=== PATIENT | female | born 1965 | race African-American/Black ===

== ENCOUNTER 2017-11-09 12:42 | Emergency (ER) | payer OTHER, SELFPAY ==
[2017-11-09] MEDS ORDERED: Acetaminophen 500 MG TAB ONE (15:18)
--- NOTE | 2017-11-09 15:25 | RAD ---
SINGLE VIEW OF THE CHEST: Comparison: 05-10-17 History: Flu with cough. FINDINGS: Single view of the chest shows a normal sized cardiomediastinal silhouette. There is no evidence of c onsolidation, mass, or pleural effusion. The bones are unremarkable. IMPRESSION: No evidence of acute cardiopulmonary disease. POS: [facility]
[2017-11-09 15:44] LABS: Hematocrit 45.3 % (36.0-47.0); Mean Platelet Volume 8.5 fL (7.4-10.4); White Blood Cell (WBC) Count 4.2 thou/uL (4.8-10.8)
[2017-11-09 15:58] LABS: Lactic Acid - Sepsis 1.8 mmol/L (0.5-2.2)
[2017-11-09 16:02] LABS: ALT (SGPT) 13 U/L (8-55); AST (SGOT) 21 U/L (5-34); Alkaline Phosphatase 84 U/L (40-150); Anion Gap 11 mmol/L (10-20); BUN (Urea Nitrogen) 8 mg/dL (9.8-20.1); Bilirubin, Total 0.3 mg/dL (0.2-1.2); Calc. Creatinine Clearance 0 mL/min (70-130); Calcium 9.1 mg/dL (7.8-10.44); Carbon Dioxide 24 mmol/L (22-29); Chloride 101 mmol/L (98-107); Estimated GFR-MDRD Greater than 90; Globulin 3.7 g/dL (2.4-3.5); Protein, Total 7.7 g/dL (6.0-8.3)
[2017-11-09 16:14] LABS: Anisocytosis SLIGHT = 6-15 cells (100X) (0-5/hpf); Band 2 % (5-11); Neutrophil 57 % (42-75); Reactive Lymphocytes 2 % (0-10)
== END 2017-11-09 16:37 | disposition home or self-care (01) ==
LOC: ERS 12:42
DX: J06.9 Acute upper respiratory infection, unspecified (principal); J44.9 Chronic obstructive pulmonary disease, unspecified
CPT/HCPCS: 36415; 71010; 80053; 83605; 85025; 94640; 96360; J7620